=== PATIENT | female | born 1990 | race Caucasian/White ===

== ENCOUNTER 2016-12-08 18:18 | Emergency (ER) | payer MEDICAID, OTHER ==
[~2016-12-08] VITALS: Ht 162.6 cm; Wt 60.0 kg
[~2016-12-08 18:18] MED LIST: ALPR2TAB6 PO; BETA15OI2 TOP; BETA15OI3 TP; BUPR1FIL3 SL; FLUC150T48 PO; IND20; METO50TA3 PO; MUPI22OI TOPICAL; PROP20TA5 PO; SULF1TAB7 PO
[2016-12-08 18:23] VITALS: BP 128/84; PULSE 146; RESP 18; O2SAT 99
[2016-12-08] MEDS ORDERED: 0.9% Sodium Chloride 1,000 ML IV ONE (19:50)
[2016-12-08 19:59] VITALS: BP 120/83; PULSE 142; RESP 20; O2SAT 98
[2016-12-08 21:03] LABS: MONOCYTES % (AUTO) 8 % (4-12); Mean Corpuscular Hemoglobin 24.8 pg (27.0-35.0); Mean Corpuscular Volume 75.6 fL (81-100); NEUTROPHILS % (AUTO) 76 % (40-74); Platelet Count 299 bil/L (150-400)
[2016-12-08 21:04] LABS: BASOPHILS % (AUTO) 0 % (0-3); EOSINOPHILS % (AUTO) 1 % (0-5)
--- NOTE | 2016-12-08 21:04 | ED.REPORT ---
HPI-Rash / Abscess Date of Service December 08, 2016 ED Provider: Doc,Ed MD The patient is a 26 year old female with history of IV drug use, who presents to the emergency department with multiple complaints. She reports an abscess to her upper left arm and lower right arm. The abscess on her left upper arm is from muscling drugs and has been present for about 1 week. The abscess on her lower right arm has been there for over 1 week. The patient last used 6 days ago. She also reports bilateral eye irritation and drainage. She normally uses erythromycin drops. She has also experienced some mild nausea, vomiting, diarrhea, and a chronic cough. She smokes cigarettes daily. She normally take 40 mg propranolol TID but has been out of this for some time now. Nursing Notes Stated Complaint: ABSCESS LEFT ARM Chief Complaint: Skin Rash/Abscess Nursing Notes Reviewed: Yes Allergies: Coded Allergies: No Known Allergies (Unverified Allergy, Unknown, 12/08/16) Scheduled Betamethasone Valerate (Betamethasone Valerate 0.1% Ointment) 15 Gm Oint...g. 1 APPLIC TOP BID Buprenorphine HCl/Naloxone HCl (Suboxone 8 mg-2 mg Sl Film) 1 Each Film 1 EACH SL BID Chlorhexidine Gluconate (Chlorhexidine Gluconate) 4,000 Ml Solution 4,000 ML MC DAILY Erythromycin Ophth Oint (Erythromycin Ophth Oint) 3.5 Gm Oint...g. 1 APPL OP QID Metoprolol Tartrate (Metoprolol Tartrate) 50 Mg Tablet 50 MG PO BID Mupirocin Oint (Bactroban Oint) 22 Gm Oint...g. 1 APPLIC TOPICAL TID Propranolol HCl (Propranolol HCl) 20 Mg Tablet 20 MG PO TID Propranolol HCl (Propranolol HCl) 20 Mg Tablet 20 MG PO TID Propranolol-Expunged Drug, Do Not Renew! (Propranolol-Expunged Drug, Do Not Renew!) 20 Mg Tab 40 TID FOR RAPID HR Sulfamethoxazole/Trimeth 800-160 mg (Bactrim DS) 1 Each Tablet 1 TABLET PO BID Sulfamethoxazole/Trimeth 800-160 mg (Bactrim DS) 1 Each Tablet 1 TABLET PO BID Scheduled PRN Alprazolam-Expunged Drug, Do Not Renew! (Alprazolam-Expunged Drug, Do Not Renew! ) 2 Mg Tablet 2 MG PO PRN For Anxiety Betamethasone Dipropionate (Betamethasone Dipropionate) 15 Gm Oint...g. 15 GM TP BID PRN PRN AD Fluconazole (Diflucan) 150 Mg Tablet 150 MG PO ONCE PRN PRN weekly General Time Seen by MD: 21:03 Chief Complaint Abscess Hx Obtained From: Patient Arrived By: Walk-in Onset Occurred: More than a week ago... Symptom Duration: Since onset Location: : Arm Quality: Painful Severity: Current: Moderate Severity: Maximum: Moderate Recent Healthcare: No recent hospitalization Similar Sx Previous: Yes Past Medical History Past Medical History IV Drug use Abscesses Eczema Graves disease Past Surgical History Denies Family History Noncontributory Smoking History Current Every Day Smoker Social History The patient has been clean for 6 days. Alcohol Use: Denies alcohol use Drug Use: IV drugs, Meth Other Social History: Good social support, Local resident Ambulatory Status Independent Review of Systems Eyes: Reports: Discharge bilateral, Eye pain bilateral, Redness bilateral Respiratory: Reports: Non-productive cough GI: Reports: Diarrhea, Nausea, Vomiting Musculoskeletal: Reports: Extremity pain Skin: Reports Rash, Reports Swelling Complete sys rev & neg: except as marked. Physical Exam Initial Vital Signs Vital Signs (First) Date Time Temp Pulse Resp B/P Pulse Ox O2 Delivery O2 Flow Rate FiO2 12/08/16 18:23 37.0 146 18 128/84 99 Room Air Initial VS: Reviewed, Vital signs abnormal Neck: Supple, Non-tender, Full range of motion Respiratory: Breath sounds normal, Clear to auscultation, No respiratory distress Abdomen / GI: Soft, Non-tender, No guarding, No rebound, No distention Lymphatic: No lymphadenopathy Extremities: Vascular intact, Neuro intact Neurologic: Alert, Oriented, Nonfocal Psychiatric: Mood/affect normal, Behavior normal, Normal thought content General/Constitutional: Awake, Alert Skin: Color NL Abscess Notes: There is a 3 cm fluctuant abscess to the left mid lateral arm and to the proximal right forearm. Head / Eyes: Normocephalic, PERRL, EOMI, Conjunctiva NL Thickening of her lid margins with slight crusting. Cardiovascular: Regular rhythm, Heart sounds NL Heart Rate / Rhythm: Positive: Tachycardia Interpretation & Diagnostics Lab Results Interpretation Result Diagram: 12/08/16204712/08/162047 Test 12/08/16 20:48 White Blood Count 12.1th/mm3 (3.8-10.1) Red Blood Count 4.92mil/mm3 (3.90-5.20) Hemoglobin 12.2g/dL (12.0-15.6) Hematocrit 37.2% (35.0-46.0) Mean Corpuscular Volume 75.6fL (81-100) Mean Corpuscular Hemoglobin 24.8pg (27.0-35.0) Mean Corpuscular Hemoglobin Concent 32.8% (32.0-37.0) Red Cell Distribution Width 13.1% (12.3-15.4) Platelet Count 299bil/L (150-400) Neutrophils (%) (Auto) 76% (40-74) Lymphocytes (%) (Auto) 15% (14-46) Monocytes (%) (Auto) 8% (4-12) Eosinophils (%) (Auto) 1% (0-5) Basophils (%) (Auto) 0% (0-3) Sodium Level 128mEq/L (134-144) Potassium Level 5.3mEq/L (3.5-5.2) Chloride Level 90mEq/L (97-108) Carbon Dioxide Level 22mmol/L (18-29) Blood Urea Nitrogen 17mg/dL (6-20) Creatinine < 0.30mg/dL (0.57-1.00) Estimat Glomerular Filtration Rate 382mL/min (>59) Glucose Level 104mg/dL (60-99) Lactic Acid Level 1.1mmol/L (0.4-2.0) Calcium Level 9.9mg/dL (8.5-10.1) Thyroid Stimulating Hormone (TSH) 0.005uIU/mL (0.450-4.500) X-Ray Chest Interpretation Chest Xray Interpretation: IMPRESSION: No acute disease Dictated by: Fercho Thomas M.D. on 12/08/2016 at 21:03 Interpretation / Wet Read by: Interpret - Radiologist Procedures Incision & Drainage Abscess Time: 21:52 Procedure Performed by: ED physician Consent / Setup / Site Prep: Consent from patient, Time-out performed, Hand hygiene observed, Stand sterile technique Location of Abscess: Left upper lateral arm Skin Preparation Agent: Hibiclens - Chlorhexidine Local Anesthesia: Lidocaine 1% Pus Drained: Large, Purulent discharge, Bloody Irrigation: Copious Post-Procedure / Complications: Packing placed, Dressing applied, No complications, Condition improved, Tolerated procedure well, Patient stable Time: 22:03 Procedure Performed by: ED physician Consent / Setup / Site Prep: Consent from patient, Time-out performed, Hand hygiene observed Location of Abscess: Right proximal forearm Skin Preparation Agent: Hibiclens - Chlorhexidine Local Anesthesia: Lidocaine 1% Pus Drained: Medium, Purulent discharge Irrigation: Copious Post-Procedure / Complications: Packing placed, Dressing applied, No complications, Condition improved, Tolerated procedure well, Patient stable Re-Eval/Medical Decision Med Decision/Clinical Course The patient had multiple complaints, with the tachycardia is concern for possible sepsis. The patient refused an IV. She did agree to have her labs drawn and it appears that she is not septic. Her tachycardia may be related to parathyroid versus being without medication versus opiate withdrawal. The patient had her abscesses lanced and packed and was started on antibiotics and given back her medications. She is told she is to follow-up with a physician. Patient was also noted to have blepharitis both eyes. Source of Hx: Old records, Friend Re-Evaluation/Progress #1: Time of Eval: 20:16 Re-Evaluation/Progress Note: The patient refused an IV. Will get a lab draw. Re-Evaluation/Progress #2: Time of Eval: 21:51 Re-Evaluation/Progress Note: Discussed plan for I&D. Will discharge after procedure. Counseled Regarding: Diagnosis, Lab results, Need for follow-up, When/why to return to ED Discharge & Departure Impression: Primary Impression: Abscess of arm, left Additional Impressions: Abscess of arm, right Blepharitis of both eyes Blepharitis type: unspecified type Eyelid: both upper and lower Qualified Code: H01.001 - Unspecified blepharitis right upper eyelid Disposition: Home Discharge Condition All VS Reviewed: Yes Condition: Stable Patient Instructions: Abscess (GEN), Blepharitis (GEN) Additional Instructions: Thank you for entrusting us with your care today. Your history does show that a previous wound culture was positive for MRSA. It is important to keep the wounds clean. Bath daily with a chlorhexidine wash to help reduce the bacteria load. Take the antibiotics as prescribed. Continue to work towards getting into see someone to help with your withdrawal. Wash your eyes out 1-2 times each day. Use the eye drops as prescribed. Take the propranolol as prescribed. You will need to followup with a primary doctor in the next few weeks to further manage your medications. Seek care sooner for any other new or worsening symptoms. Referrals: [facility] Attestation Portions of this note were transcribed by Emily Welch. I, Dr. Go personally performed the history, physical exam and medical decision-making; I reviewed and confirmed the accuracy of the information in the transcribed note. Signed by: Priscila Mike, 12/08/2016 at 2230. copies to: [facility]; [facility] Tonya Go MD December 08, 2016 21:04 Emily Welch December 08, 2016 21:23
--- NOTE | 2016-12-08 21:04 | DRSVH ---
PROCEDURE: X-RAY CHEST, TWO VIEWS ([id number]) INDICATIONS: cough TECHNIQUE: 2 views of the chest were acquired. COMPARISON: None. FINDINGS: Surgical changes and devices: None. Lungs and pleura: No pleural effusions or pneumothorax. Lungs are clear. Mediastinum: Mediastinal contours are normal. Heart size is normal. Bones and chest wall: No suspicious bony abnormalities. Soft tissues appear unremarkable. IMPRESSION: No acute disease Dictated by: Fercho Thomas M.D. on 12/08/2016 at 21:03 Approved by: Fercho Thomas M.D. on 12/08/2016 at 21:03
[2016-12-08] MEDS ORDERED: Ketorolac 15 mg/mL Inj IVPUSH ONE (21:30)
[2016-12-08] MEDS ORDERED: Buprenorphine 2 mg SL Tablet SL ONE (21:30)
[2016-12-08] MEDS ORDERED: Trimethoprim-Sulfa 160 mg-800 mg Tablet PO ONE (21:35)
[2016-12-08] MEDS ORDERED: Ketorolac 15 mg/mL Inj IM ONE (21:40)
[2016-12-08] MEDS ORDERED: [UNRECOGNIZED DRUG - CODE] MC (21:44)
[2016-12-08] MEDS ORDERED: ERYT1OIN7 OP (21:44)
[2016-12-08] MEDS ORDERED: PROP20TA5 PO (21:44)
[2016-12-08] MEDS ORDERED: SULF1TAB7 PO (21:44)
[2016-12-08 22:19] VITALS: BP 134/85; PULSE 118; RESP 20; O2SAT 97
== END 2016-12-08 22:20 | disposition home or self-care (01) ==
LOC: SED 18:18
DX: L02.414 Cutaneous abscess of left upper limb (principal); L02.413 Cutaneous abscess of right upper limb; H01.006 Unspecified blepharitis left eye, unspecified eyelid; H01.003 Unspecified blepharitis right eye, unspecified eyelid; R11.2 Nausea with vomiting, unspecified; R19.7 Diarrhea, unspecified; R05 Cough; E05.00 Thyrotoxicosis with diffuse goiter without thyrotoxic crisis or storm; F17.200 Nicotine dependence, unspecified, uncomplicated
CPT/HCPCS: 10061; 36415; 71020; 80048; 83605; 84443; 85025; 96372; 99284; J1885

== ENCOUNTER 2017-01-01 04:16 | Emergency (ER) | payer MEDICAID, OTHER ==
[~2017-01-01] VITALS: Ht 162.6 cm; Wt 59.1 kg
[~2017-01-01 04:16] MED LIST changes: +ERYT1OIN7 OP; +[UNRECOGNIZED DRUG - CODE] MC
[2017-01-01 04:23] VITALS: BP 145/95; PULSE 128; RESP 16; O2SAT 99
--- NOTE | 2017-01-01 05:20 | ED.REPORT ---
HPI-General Illness Date of Service Jan 01, 2017 ED Provider: El Vanessa MD The patient is a 26 year old female with a medical history including Graves disease, abscesses, and IV drug use who presents to the ED requesting a Suboxone prescription for heroin detox assistance. The patient's last IV heroin use was 1700 yesterday and she normally uses 1g per day. The patient also smokes methamphetamines regularly. She called [facility] for an appointment recently but was told she needed an ID and to change her insurance before she could be seen. She has reportedly done this and plans to call the clinic back. The patient is recently homeless but has a friend who is willing to let her live with them if she stops using heroin. She has been on Suboxone in the past. The patient also requests a refill of her propranolol prescription. Nursing Notes Stated Complaint: REQUESTING SUBOXONE Chief Complaint: Substance Abuse Nursing Notes Reviewed: Yes Allergies: Coded Allergies: No Known Allergies (Verified Allergy, Unknown, 01/01/17) Scheduled Betamethasone Valerate (Betamethasone Valerate 0.1% Ointment) 15 Gm Oint...g. 1 APPLIC TOP BID Buprenorphine HCl/Naloxone HCl (Suboxone 8 mg-2 mg Sl Film) 1 Each Film 1 EACH SL BID Buprenorphine/Naloxone 8-2 mg (Buprenorphine/Naloxone 8-2 mg) 1 Each Tab.subl 1 TABLET SL BID Chlorhexidine Gluconate (Chlorhexidine Gluconate) 4,000 Ml Solution 4,000 ML MC DAILY Erythromycin Ophth Oint (Erythromycin Ophth Oint) 3.5 Gm Oint...g. 1 APPL OP QID Metoprolol Tartrate (Metoprolol Tartrate) 50 Mg Tablet 50 MG PO BID Mupirocin Oint (Bactroban Oint) 22 Gm Oint...g. 1 APPLIC TOPICAL TID Propranolol HCl (Propranolol HCl) 20 Mg Tablet 20 MG PO TID Propranolol HCl (Propranolol HCl) 20 Mg Tablet 20 MG PO TID Propranolol HCl (Propranolol HCl) 40 Mg Tablet 40 MG PO BID Propranolol HCl (Propranolol HCl) 40 Mg Tablet 40 MG PO BID Propranolol-Expunged Drug, Do Not Renew! (Propranolol-Expunged Drug, Do Not Renew!) 20 Mg Tab 40 TID FOR RAPID HR Sulfamethoxazole/Trimeth 800-160 mg (Bactrim DS) 1 Each Tablet 1 TABLET PO BID Sulfamethoxazole/Trimeth 800-160 mg (Bactrim DS) 1 Each Tablet 1 TABLET PO BID Scheduled PRN Alprazolam-Expunged Drug, Do Not Renew! (Alprazolam-Expunged Drug, Do Not Renew! ) 2 Mg Tablet 2 MG PO PRN For Anxiety Betamethasone Dipropionate (Betamethasone Dipropionate) 15 Gm Oint...g. 15 GM TP BID PRN PRN AD Fluconazole (Diflucan) 150 Mg Tablet 150 MG PO ONCE PRN PRN weekly General Time Seen by MD: 04:29 Chief Complaint Other (Heroin Detox Suboxone Request) Hx Obtained From: Patient Arrived By: Walk-in Sudden in Onset?: No Onset Occurred: 9 - 12 hours ago Symptom Duration: Since onset Severity: Current: No pain currently Severity: Maximum: No pain Pertinent Negative: Relieved by nothing Context Related History: Reports Drug dependence Recent Healthcare: No recent doctor visit Similar Sx Previous: Yes Past Medical History Past Medical History IV Drug use Abscesses Eczema Graves disease Blepharitis of both eyes Past Surgical History Denies Family History Noncontributory Smoking History Current Every Day Smoker Social History Alcohol Use: Denies alcohol use Drug Use: IV drugs, Meth, THC (Occasional), Other (Heroin) Other Social History: Good social support, Local resident Ambulatory Status Independent Review of Systems + Heroin detox Suboxone request Full Review of Systems Constitutional: Denies: Fever Respiratory: Denies: Non-productive cough, Shortness of breath GI: Denies: Diarrhea, Vomiting Complete sys rev & neg: except as marked. Physical Exam Vital Signs Vital Signs Date Time Temp Pulse Resp B/P Pulse Ox O2 Delivery O2 Flow Rate FiO2 01/01/17 05:46 86 18 01/01/17 04:23 36.3 128 16 145/95 99 Room Air Initial VS: Reviewed, Vital signs abnormal Head / Eyes: Atraumatic, Normocephalic ENT: Conjunctiva normal, No scleral icterus Neck: Supple, Full range of motion Respiratory: Breath sounds normal, Clear to auscultation, No respiratory distress Neurologic: Alert, Oriented, Nonfocal Psychiatric: Mood/affect normal, Behavior normal, Normal thought content General/Constitutional: Awake, Alert, No acute distress Rapid-fire speech Cardiovascular: Regular rhythm, Heart sounds NL Heart Rate / Rhythm: Positive: Tachycardia Skin: Warm, Dry Tracks and healing abscesses to bilateral forearms No active abscesses Re-Eval/Medical Decision Med Decision/Clinical Course 26-year-old female well known to me from previous outpatient Suboxone treatment. She has been in a prolonged relapse state. She now desires sobriety. She was given a prescription of Suboxone 8/2 #10 to last 5 days while she gets established again in the clinic. Source of Hx: Old records Time of Eval: 05:42 Patient Status: Condition improved Re-Evaluation/Progress Note: Discussed with patient physical exam findings, diagnosis, and plan for discharge. Follow-up and return to the ER instructions given. Patient agrees with plan for care and all questions were addressed. Counseled Regarding: Diagnosis, Need for follow-up, When/why to return to ED Discharge & Departure Primary Impression: Methamphetamine abuse Additional Impression: Opioid dependence Substance use status: uncomplicated Qualified Code: F11.20 - Opioid dependence, uncomplicated Disposition: Home Discharge Condition All VS Reviewed: Yes Condition: Improved Patient Instructions: Buprenorphine/Naloxone (Into the mouth) Additional Instructions: Ya gotta do this!... No more meth or heroin. 24 hours after your last used you can start Suboxone 8/ 2 film, 2 strips daily, #10 prescribed. Call the primary access line at [facility], for appointment this week. Referrals: [facility] (PCP) JAVIER Francois Attestation Portions of this note were transcribed by Rosanna Artis. I, Dr. Vanessa, personally performed the history, physical exam, and medical decision-making; I reviewed and confirmed the accuracy of the information in the transcribed note. Signed by: Priscila Brewer, 01/01/2017, 06:05 copies to: El Becerra MD Jan 01, 2017 05:20 ROSANNA ARTIS Jan 01, 2017 05:25
[2017-01-01] MEDS ORDERED: _Naloxone 0.4 mg/1 mL 2 Vial Kit (FOR INJECTION) IM PRN (05:25)
[2017-01-01] MEDS ORDERED: PROP40TA5 PO ×2 (05:40→05:41)
[2017-01-01] MEDS ORDERED: BUPR1TAB36 SL (05:40)
[2017-01-01 05:46] VITALS: PULSE 86; RESP 18
== END 2017-01-01 05:47 | disposition home or self-care (01) ==
LOC: SED 04:16
DX: F15.10 Other stimulant abuse, uncomplicated (principal); F11.20 Opioid dependence, uncomplicated; E05.00 Thyrotoxicosis with diffuse goiter without thyrotoxic crisis or storm; F17.200 Nicotine dependence, unspecified, uncomplicated; Z59.0 Homelessness